=== PATIENT | male | born 1965 | race Caucasian/White ===

== ENCOUNTER → 2018-11-20 | Outpatient (CLI) | payer OTHER ==
--- NOTE | 2018-11-20 16:55 | RAD ---
THREE-VIEW LUMBAR SPINE SERIES Clinical indications: Low back pain. Left hip pain. Arthritis. FINDINGS: The transverse processes are intact. No compression fracture discitis or lytic process or anterolisthesis is evident. There is mild to moderate degenerative endplate spurring without significant disc space narrowing throughout the lumbar spine. IMPRESSION: Mild to moderate degenerative endplate spurring. No acute compression fracture. AP VIEW OF THE PELVIS AND FROG-LEG VIEW OF THE LEFT HIP INDICATIONS: Same. FINDINGS: No acute fracture or dislocation or lytic process is evident. Small accessory opacification center of the superior-lateral aspect of the acetabulum is seen. There is a small degenerative spur of the lateral superior aspect of the left femoral head. No significant arthritic joint effusion is seen. IMPRESSION: Mild degenerative spurring of the left femoral head without significant joint space narrowing. Electronically signed by: Prosper Alvarenga MD (11/20/2018 4:51 PM) [id number]
== END | disposition home or self-care (01) ==
LOC: RAD 09:50
PROVIDERS: ATTEND Physical Medicine & Rehabilitation
DX: M16.12 Unilateral primary osteoarthritis, left hip (principal); M54.5 Low back pain
CPT/HCPCS: 72100; 73502